=== PATIENT | female | born 1990 | race Hispanic/Latino ===

== ENCOUNTER 2016-06-18 09:19 | Day surgery (SDC) | payer BC ==
[~2016-06-18 09:19] MED LIST: Bupivacaine 0.5% 10 ML SDV ONE; Lactated Ringers 1,000 ML IV SCH; Lidocaine 1% 20 ML MDV ONE; Lidocaine 2% 5 ML SDV ONE; Midazolam 1 MG/ML 2 ML SDV ONE; Propofol 200 MG/20 ML SDV ONE; Sodium Chloride 0.9% 10 ML Syringe FLUSH PRN; Sodium Chloride 0.9% 2.5 ML Syringe FLUSH PRN; ceFAZolin 2 GM in Premix Bag 1 BAG IV ONE; fentaNYL 100 MCG/2 ML SDV ONE
--- NOTE | 2016-06-18 09:50 | PCM.PREANE ---
Preanesthetic Assessment - ANESTHESIA/TRANSFUSION/FAMILY HX Anesthesia/Transfusion History: Prior Anesthesia Family History of Anesthesia Reaction: No - REVIEW OF SYSTEMS Constitutional: Reports: cold symptoms (still states that she is coughing up phlegm and does get into coughing fits; lungs clear and Dr. Rivers ok to proceed ) MENTAL RETARDATION AIDE: Reports: no symptoms Respiratory: Reports: cough Cardiovascular: Reports: no symptoms GI: Reports: no symptoms Other: Reports: none - PHYSICAL ASSESSMENT O2 Sat by Pulse Oximetry: 97 RR: 16 Vital Signs: Last Vital Signs Temp 98.1 F 06/18/16 09:34 Pulse 65 06/18/16 09:34 Resp 16 06/18/16 09:34 BP 108/67 06/18/16 09:34 Pulse Ox 97 06/18/16 09:34 Height: 5 ft 3 in Weight: 168 lb NPO Status Date: 06/17/16 NPO Status Time: 22:00 ASA Class: 2 Mental Status: alert & oriented x3 Airway Class: Mallampati = 2 Dentition: Reports: normal dentition Thyro-Mental Finger Breadths: 3 Mouth Opening Finger Breadths: 3 ROM/Head Extension: full Respiratory Status: lungs clear to auscultation bilaterally Cardiovascular Status: regular rate & rhythm, normal S1, S2, no murmur, blood pressure WNL - ALLERGIES Allergies/Adverse Reactions: Allergies Allergy/AdvReac Type Severity Reaction Status Date / Time No Known Allergies Allergy Verified 10/14/15 03:00 - BLOOD Blood Available: No Product(s) Available: None - ANESTHESIA PLAN Free Text/Narrative:: MAC Preop Beta Terence: No Anesthesia Type Planned: MAC - ACKNOWLEDGEMENTS Pt an appropriate candidate for the planned anesthesia: Yes Alternatives and risks of anesthesia discussed w pt/guardian: Yes Pt/Guardian understands and agree with anesthesia plan: Yes PreAnesthesia Questionnaire Respiratory History: Reports: Other (see below) Other Respiratory History: hx pneumonia 2 weeks ago - completed a z-pack, but still has a cough. Lungs are clear and Dr. Rivers and pt ok to proceed. [employer] SUPER[employer]OR History: Reports: Psychiatric History: Reports: Anxiety, Depression - Infectious Disease History Infectious Disease History: Reports: Human papilloma virus (HPV) - Past Surgical History Head Surgeries/Procedures: Reports: None HEENT Surgical History: Reports: Oral surgery (wisdom teeth) Female Surgical History: Reports: D&C, Other (see below) (laparoscopy for ectopic) - SUBSTANCE USE Smoking Status *Q: Current Every Day Smoker Tobacco Use Within Last Twelve Months: Cigarettes Recreational Drug Use History: No - HOME MEDS Home Medications: Home Meds Citalopram [Celexa] 20 mg PO DAILY 06/16/16 [History] Nuva Ring 1 device VAG ASDIRECTED 06/16/16 [History] - CURRENT (IN HOUSE) MEDS Current Meds: Current Medications Lactated Ringer's (Ringers, Lactated) 1,000 mls @ 125 mls/hr IV ASDIRECTED CHAYA Last Admin: 06/18/16 09:36 Dose: 125 mls/hr Sodium Chloride (Saline Flush) 10 ml FLUSH ASDIRECTED PRN PRN Reason: Keep Vein Open Sodium Chloride (Saline Flush) 2.5 ml FLUSH ASDIRECTED PRN PRN Reason: Keep Vein Open Discontinued Medications Bupivacaine HCl (Sensorcaine-Mpf 0.5%) Confirm Administered Dose 20 ml .ROUTE .STK-MED ONE Stop: 06/18/16 09:11 Fentanyl (Sublimaze) Confirm Administered Dose 100 mcg .ROUTE .STK-MED ONE Stop: 06/18/16 07:29 Cefazolin Sodium/Dextrose 2 gm (/ Premix) 50 mls @ 100 mls/hr IV ONETIME ONE Stop: 06/17/16 14:36 Lidocaine (Xylocaine-Mpf 2%) Confirm Administered Dose 5 ml .ROUTE .STK-MED ONE Stop: 06/18/16 07:28 Lidocaine HCl (Xylocaine 1%) Confirm Administered Dose 20 ml .ROUTE .STK-MED ONE Stop: 06/18/16 09:11 Midazolam HCl (Versed 1 Mg/Ml) Confirm Administered Dose 2 mg .ROUTE .STK-MED ONE Stop: 06/18/16 07:29 Propofol (Diprivan 20 Ml) Confirm Administered Dose 200 mg .ROUTE .STK-MED ONE Stop: 06/18/16 07:29 Propofol (Diprivan 20 Ml) Confirm Administered Dose 200 mg .ROUTE .STK-MED ONE Stop: 06/18/16 07:33
[2016-06-18] MEDS ORDERED: Ondansetron 4 MG/2 ML SDV ONE (10:22)
[2016-06-18] MEDS ORDERED: Octyl 2-Cyanoacrylate 1 Tube ONE (10:22)
[2016-06-18] MEDS ORDERED: Ketorolac 30 MG/ML SDV ONE (10:22)
--- NOTE | 2016-06-18 11:29 | PCM.POSTAN ---
POST ANESTHESIA ASSESSMENT - MENTAL STATUS Mental Status: alert, oriented - RESPIRATORY Respiratory Status: respiratory rate WNL, airway patent, O2 saturation stable - CARDIOVASCULAR CV Status: pulse rate WNL, blood pressure stable - GASTROINTESTINAL GI Status: no symptoms - PAIN Pain Score: 0 - POST OP HYDRATION Hydration Status: adequate & stable
--- NOTE | 2016-06-18 11:30 | PCM48HPAN ---
Post Anesthesia Note - EVALUATION WITHIN 48HRS OF ANESTHETIC Vital Signs in Normal Range: Yes Patient Participated in Evaluation: Yes Respiratory Function Stable: Yes Airway Patent: Yes Cardiovascular Function Stable: Yes Hydration Status Stable: Yes Pain Control Satisfactory: Yes Nausea and Vomiting Control Satisfactory: Yes Mental Status Recovered: Yes
[2016-06-18 12:10] VITALS: BP 97/57
--- NOTE | 2016-06-18 13:12 | PCM.OPNOTE ---
- General Post-Op/Procedure Note Date of Surgery/Procedure: 06/18/16 Operative Procedure(s): Excision left groin hydradenitis Findings: 2 x 1 cm elliptical incision of left groin hydradenitis Pre Op Diagnosis: Hydradenitis Post-Op Diagnosis: same Anesthesia Technique: MAC Primary Surgeon: Brit Rivers EBL in mLs: 5 Condition: Good Free Text/Narrative:: Intake & Output 06/17/16 06/18/16 06/18/16 22:59 06:59 14:59 Intake Total 1650 Balance 1650
--- NOTE | 2016-06-18 21:37 | OR ---
SURGEON: DEV PARRA MD DATE OF PROCEDURE: 06/18/2016 PREOPERATIVE DIAGNOSIS: Left groin hidradenitis. POSTOPERATIVE DIAGNOSIS: Left groin hidradenitis. PROCEDURE: Left groin excision of hidradenitis. ANESTHESIA: MAC. FINDINGS: A 2 x 1 cm elliptical incision taken from the left groin, chronically infected tissue consistent with hidradenitis. No active infection or drainage from the wound was noted. ESTIMATED BLOOD LOSS: 5 mL. COMPLICATIONS: None. INDICATIONS: The patient is a 25-year-old female, who comes to clinic with complaint of 5 years of a nonhealing wound in her left groin. It has undergone incision and drainage multiple times, but never seems to completely go away. The patient was seen in OB Clinic and sent to my clinic for evaluation. On exam, the patient has a small sinus tract consistent with hidradenitis suppurativa. The decision was made to go to the operating room to perform a primary excision of this area with closure. We discussed the procedure including expected perioperative course. We discussed the risks, including bleeding, infection, or damage to surrounding structures. The patient verbalized understanding and wishes to proceed. PROCEDURE IN DETAIL: The patient was brought to the operating room and placed on the operating room table in supine position. A time-out was completed verifying the patient's name, age, date of , allergies, and procedure to be performed. The groin and upper legs were prepped and draped in usual standard fashion. The site was first anesthetized with 1% lidocaine plain. Once this was completed, an elliptical incision was made along the groin crease, which measured approximately 2 to 3 x 1 cm in diameter. This was done with a 15 blade. Cautery was then used to dissect down to the subcutaneous fat. The ellipse of tissue, which included the chronically draining sinus was then removed using cautery. The sinus and underlying subcutaneous tissues were sent to pathology labeled as left groin hidradenitis. The wound was made hemostatic while using cautery. The skin edges were then brought together with interrupted 3-0 subcutaneous Vicryl sutures within the subcutaneous fat and the skin overlying the wound was closed with a running 4-0 Monocryl suture. Dermabond was placed over the top of the incision and allowed to dry. Sterile dressings were then applied. Counts were complete and correct at the end of the case. The patient was awoken and taken to the PACU in stable condition. ELIN WATERS /[id number]
--- NOTE | 2016-06-23 09:44 | PCM.HPR ---
H & P Addendum review - H & P Addendum Review Date of Original H & P: 06/18/16 Date Reviewed: 06/23/16 Patient was examined: No Changes
== END 2016-06-18 12:20 | disposition home or self-care (01) ==
LOC: MW.SDS 09:19
PROVIDERS: ATTEND Surgery
DX: L02.214 Cutaneous abscess of groin (principal); F41.8 Other specified anxiety disorders; R63.5 Abnormal weight gain; J18.9 Pneumonia, unspecified organism; Z79.899 Other long term (current) drug therapy; Z98.890 Other specified postprocedural states; F17.210 Nicotine dependence, cigarettes, uncomplicated; Z78.9 Other specified health status
CPT/HCPCS: 11462; 81025; A9270; J1885; J2250; J2405; J3010; J7120; 00400; 88305; J2704